=== PATIENT | male | born 1960 | race Caucasian/White ===

== ENCOUNTER 2020-08-07 17:42 | Emergency (ER) | payer OTHER ==
[2020-08-07 18:03] VITALS: BP 150/98; PULSE 95; TEMP 98; BMI 30.7
[2020-08-07] MEDS ORDERED: CASIRIVIMAB (REGN10933) 1,200 MG, IMDEVIMAB (REGN10987) 1,200 MG in SODIUM CHLORIDE 230 ML IVPB ONE (19:05)
[2020-08-07 19:20] LABS: POTASSIUM 3.9 mmol/L (3.5-5.1)
[2020-08-07 19:23] LABS: CALCIUM 8.5 mg/dL (8.5-10.1)
[2020-08-07 19:24] LABS: BLOOD UREA NITROGEN 12.6 mg/dL (7-18)
[2020-08-07 19:27] LABS: CREATININE 1.2 mg/dL (0.55-1.3)
[2020-08-07 19:28] LABS: BILIRUBIN,TOTAL 0.8 mg/dL (0.2-1); TOT PROT 7.4 g/dl (6.4-8.2)
[2020-08-07] MEDS ORDERED: ACETAMINOPHEN 1000 MG/100 ML VIAL (NON FORMULARY) IVPB ONE (19:28)
[2020-08-07 19:44] LABS: BASO % 0.8 % (0-2.0); EOS % 0.4 % (0-4.5); HEMATOCRIT 47.7 % (35.4-49); HEMOGLOBIN 16.6 GM/dL (11.7-16.9); LYMPH % 11.9 % (8-40); MCH 30.4 pg (25.7-33.7); MCHC 34.8 g/dl (32.0-35.9); MEAN CELL VOLUME 87.4 fl (80-96); MEAN PLT VOLUME 10.2 fl (7.5-11.1); MONO % 13.8 % (3.8-10.2); NEUT % 73.1 % (42.8-82.8); PLATELET COUNT 135 K/MM3 (134-434); RBC 5.45 M/mm3 (4.00-5.60); RDW 14.3 % (11.9-15.9)
[2020-08-07] MEDS ORDERED: ACETAMINOPHEN INJECTION 100 ML IVPB ONE (20:14)
[2020-08-07] MEDS ORDERED: guaiFENesin/D-METHORPHAN TAB.ER.12H PO SCH (22:00)
== END 2020-08-07 22:01 | disposition home or self-care (01) ==
LOC: JER 17:42
PROC: 3E0333Z Introduction of Anti-inflammatory into Peripheral Vein, Percutaneous Approach (ICD-10-PCS; principal; 2020-08-07)
PROC: 3E033NZ Introduction of Analgesics, Hypnotics, Sedatives into Peripheral Vein, Percutaneous Approach (ICD-10-PCS; 2020-08-07)
DX: U07.1 COVID-19 (principal)
CPT/HCPCS: 36415; 71045-TC-FY; 80053; 85025; 99284-25; J0131; M0243; Q0243